=== PATIENT | female | born 1960 | race Caucasian/White ===

== ENCOUNTER 2018-11-23 17:29 | Inpatient (IN) | payer OTHER, MEDICAID, SELFPAY ==
[2018-11-23] VITALS (11 sets, daily range): BP systolic 98–178; BP diastolic 60–95; PULSE 62–80; RESP 14–21; TEMP 35.9–36.7; O2SAT 98–100; BMI 25.6
--- NOTE | 2018-11-23 17:42 | DI.RAD.S_ITS ---
PROCEDURE: XR CHEST 1V INDICATIONS: intubation TECHNIQUE: One view of the chest was acquired. COMPARISON: None. FINDINGS: Surgical changes and devices: Endotracheal tube present with tip terminating approximately 4.2 cm above the gina. Lungs and pleura: Lungs are clear. No pleural effusions or pneumothorax. Mediastinum: Mediastinal contours appear normal. Heart size is normal. Bones and chest wall: No suspicious bony lesions. Degenerative changes of the spine and shoulders. Overlying soft tissues appear unremarkable. IMPRESSION: Endotracheal tube tip 4.2 cm above the gina. No other acute cardiopulmonary findings. Dictated by: Raúl Myrick M.D. on 11/23/2018 at 17:19 Approved by: Raúl Myrick M.D. on 11/23/2018 at 17:21
--- NOTE | 2018-11-23 17:43 | PC.NURSE ---
pt arrived with ems, pt had wellness check by , where she told them she had taken medication and drank alcohol. ems arrived and brought patient in. pt had iv to rt ac and had small amt of charcoal.
--- NOTE | 2018-11-23 17:46 | PC.NURSE ---
pt had agonal breaths on arrival, respiratory at bedside, pt provided etomidate 15mg iv push at 1738, succinylcholine 100mg iv push at 1739. 217ett 7.5, ll 23, 15rr, 450tv, 5 peep, 100% O2, bp 217/136, hr 24, 98% spo2.
--- NOTE | 2018-11-23 17:47 | ED_ITS ---
HPI - Overdose General Chief Complaint: Toxicology Problem Stated Complaint: Suicidial Ideation Time Seen by Provider: 11/23/18 17:42 Source: family and EMS Mode of arrival: EMS Limitations: altered mental status History of Present Illness HPI Narrative: Patient is a 58-year-old female with history of bipolar presen ting with overdose. Daughter called police for possible suicide attempt. Patient states that she took her olanzapine and alcohol. She was ambulatory out of the house and into the ambulance. However upon arrival to ED she quickly became unresponsive. I spoke with daughter who states that she had a psychotic break in October she was not hospitalized at that time. She has not been taking her olanzapine as she is supposed to. Bottles of olanzapine 2.5 mg and 15 mg are brought in but completely empty they were filled on 10/14/2018. It is unknown how many she took. Review of Systems Review of Systems ROS Unobtainable: Unobtainable due to medical condition Patient History Medical History Bipolar 1 disorder (Acute) PTSD (post-traumatic stress disorder) (Acute) Exam Initial Vital Signs Initial Vital Signs: Vital Signs Temperature 97.8 F 11/23/18 17:37 Gen.: Patient responsive minimally only to pain HEENT: No trauma, KATE Neck: Supple no JVD Lungs: Clear bilaterally no wheezes rales or rhonchi Cardiac: Regular rate and rhythm S1-S2 Abdomen: Soft nontender Extremities: No gross bony deformities peripheral pulses intact Neurologic: Responsive minimally to pain unable to protect airway Procedures Intubation Time out performed: Yes sedative: Etomidate Mg Given: 15 paralytic: Succinylcholine Mg Given: 100 Laryngoscope: fiber optic video scope ET Tube Size: 7.5 ET Tube Uncuffed: No Tube Secured Location: lips Tube Placement Confirmation: Visualized tube passing through cords, Equal breath sounds bilaterally, No breath sounds over epigastrium, Confirmation by capnometry and Chest Xray Patient Tolerated Procedure: Well Intubation Complications: none Course Orders Ordered: ED Orders 11/23/18 17:20 Acetaminophen Stat Complete Blood Count AUTO DIFF Stat Comprehensive Metabolic Panel Stat Ethanol (ETOH) Stat Hepatic (Liver) Panel Stat Lipase Stat Salicylate Stat 11/23/18 17:42 XR chest 1V Stat 11/23/18 17:46 EKG-12 Lead Routine 11/23/18 18:07 Urine Drug Screen, Rapid Stat 11/23/18 18:09 Lactate (Lactic Acid) Stat Sodium Chloride (Normal Saline 0.9%) 1,000 mls @ 150 mls/hr IV CONT ORION Last Admin: 11/23/18 18:11 Dose: 150 mls/hr Documented by: BTONER Propofol (Propofol) 1,000 mg in 100 mls @ 0 mls/hr IV TITRATE ORION; Protocol Discontinued Medications Etomidate (Amidate) 15 mg IV NOW ONE Stop: 11/23/18 17:44 Last Admin: 11/23/18 18:11 Dose: 15 mg Documented by: BTONER Propofol (Diprivan) 50 mg IV NOW ONE Stop: 11/23/18 18:43 Last Admin: 11/23/18 18:48 Dose: 50 mg Documented by: BTONER Succinylcholine Chloride (Quelicin) 100 mg IV NOW ONE Stop: 11/23/18 17:46 Last Admin: 11/23/18 18:10 Dose: 100 mg Documented by: BTONER Vital Signs Vital signs: Vital Signs - 8 hr 11/23/18 17:37 11/23/18 17:56 11/23/18 18:24 Temperature 97.8 F 97.8 F Pulse Rate 80 Respiratory Rate 14 Blood Pressure [Left Arm] 178/88 H Pulse Oximetry 100 MDM - Overdose Lab Data Attestation: I reviewed the patient's lab results. Result diagrams: 11/23/18 17:20 11/23/18 17:20 Labs: Lab Results 11/23/18 11/23/18 11/23/18 Range/Units 17:20 17:20 18:07 WBC 9.4 (4.5-11.0) X10^3/uL RBC 5.19 (4.0-5.2) X10^6/uL Hgb 16.1 H (12.0-16.0) g/dL Hct 46.5 H (36-46) % MCV 89.6 (80-100) fL MCH 30.9 (26-34) PG MCHC 34.5 (30-36) % RDW 13.5 (11.6-14.8) % Plt Count 272 (150-400) X10^3/uL Neut % (Auto) 48.0 L (50-75) % Lymph % (Auto) 43.3 H (25-40) % [place] % (Auto) 4.0 (3-14) % Eos % (Auto) 3.7 (2-4) % Baso % (Auto) 1.0 (0-2) % Neut # (Auto) 4500 (1231-7769) /uL Lymph # (Auto) 4100 (0632-1010) /uL [place] # (Auto) 400 (0-900) /uL Eos # (Auto) 300 (0-450) /uL Baso # (Auto) 100 (0-100) /uL Sodium 142 (137-145) mmol/L Potassium 4.0 (3.4-5.1) mmol/L Chloride 109 H (98-107) mmol/L Carbon Dioxide 21 L (22-32) mmol/L BUN 17 (7-17) mg/dL Creatinine 0.80 (0.52-1.04) mg/dL Estimated GFR > 60.0 (>60) mL/min BUN/Creatinine Ratio 21.3 (6-22) Glucose 94 (70-100) mg/dL Lactate (0.7-2.1) mmol/L Calcium 9.4 (8.4-10.2) mg/dL Total Bilirubin 0.3 (0.2-1.3) mg/dL Conjugated Bilirubin 0.0 (0.0-0.3) md/dL Unconjugated Bilirubin 0.2 (0.0-1.1) mg/dL AST 28 (14-36) IU/L ALT 24 (9-52) IU/L Alkaline Phosphatase 89 (38-126) U/L Total Protein 8.1 (6.3-8.2) g/dL Albumin 4.8 (3.5-5.0) g/dL Globulin 3.3 (1.7-4.1) g/dL Albumin/Globulin Ratio 1.5 (1.0-2.8) Lipase 227 (23-300) U/L Salicylates 1.4 (<20) mg/dL U Morph 300 ng/mL cutoff Negative (Negative) Ur Oxycodone Screen Negative (Negative) Urine Methadone Screen Negative (Negative) Acetaminophen < 10 L (10-30) ug/mL Ur Barbiturates Screen Negative (Negative) U Tricyclic Antidepress Negative (Negative) Ur Phencyclidine Scrn Negative (Negative) Ur Amphetamines Screen Negative (Negative) U Methamphetamines Scrn Negative (Negative) Ur MDMA Scrn (Ecstasy) Negative (Negative) U Benzodiazepines Scrn Negative (Negative) Urine Cocaine Screen Negative (Negative) U Marijuana (THC) Screen Negative (Negative) Ethyl Alcohol 47 H ( - 10) mg/dL 11/23/18 Range/Units 18:09 WBC (4.5-11.0) X10^3/uL RBC (4.0-5.2) X10^6/uL Hgb (12.0-16.0) g/dL Hct (36-46) % MCV (80-100) fL MCH (26-34) PG MCHC (30-36) % RDW (11.6-14.8) % Plt Count (150-400) X10^3/uL Neut % (Auto) (50-75) % Lymph % (Auto) (25-40) % [place] % (Auto) (3-14) % Eos % (Auto) (2-4) % Baso % (Auto) (0-2) % Neut # (Auto) (2508-5989) /uL Lymph # (Auto) (0603-3685) /uL [place] # (Auto) (0-900) /uL Eos # (Auto) (0-450) /uL Baso # (Auto) (0-100) /uL Sodium (137-145) mmol/L Potassium (3.4-5.1) mmol/L Chloride (98-107) mmol/L Carbon Dioxide (22-32) mmol/L BUN (7-17) mg/dL Creatinine (0.52-1.04) mg/dL Estimated GFR (>60) mL/min BUN/Creatinine Ratio (6-22) Glucose (70-100) mg/dL Lactate 1.7 (0.7-2.1) mmol/L Calcium (8.4-10.2) mg/dL Total Bilirubin (0.2-1.3) mg/dL Conjugated Bilirubin (0.0-0.3) md/dL Unconjugated Bilirubin (0.0-1.1) mg/dL AST (14-36) IU/L ALT (9-52) IU/L Alkaline Phosphatase (38-126) U/L Total Protein (6.3-8.2) g/dL Albumin (3.5-5.0) g/dL Globulin (1.7-4.1) g/dL Albumin/Globulin Ratio (1.0-2.8) Lipase (23-300) U/L Salicylates (<20) mg/dL U Morph 300 ng/mL cutoff (Negative) Ur Oxycodone Screen (Negative) Urine Methadone Screen (Negative) Acetaminophen (10-30) ug/mL Ur Barbiturates Screen (Negative) U Tricyclic Antidepress (Negative) Ur Phencyclidine Scrn (Negative) Ur Amphetamines Screen (Negative) U Methamphetamines Scrn (Negative) Ur MDMA Scrn (Ecstasy) (Negative) U Benzodiazepines Scrn (Negative) Urine Cocaine Screen (Negative) U Marijuana (THC) Screen (Negative) Ethyl Alcohol ( - 10) mg/dL Imaging Data Chest x-ray: Radiologist's impression: PROCEDURE: XR CHEST 1V INDICATIONS: intubation TECHNIQUE: One view of the chest was acquired. COMPARISON: None. FINDINGS: Surgical changes and devices: Endotracheal tube present with tip terminating approximately 4.2 cm above the gina. Lungs and pleura: Lungs are clear. No pleural effusions or pneumothorax. Mediastinum: Mediastinal contours appear normal. Heart size is normal. Bones and chest wall: No suspicious bony lesions. Degenerative changes of the spine and shoulders. Overlying soft tissues appear unremarkable. IMPRESSION: Endotracheal tube tip 4.2 cm above the gina. No other acute cardiopulmonary findings. Dictated by: Raúl Myrick M.D. on 11/23/2018 at 17:19 ECG Data Attestation: I personally reviewed and interpreted this ECG as follows: Prior ECG tracings: not available for review Interpretation: Sinus rhythm rate 90 p.r. interval 146 QRS 90 QTC 415 no R-waves in AVR no ST elevations or T-wave inversions MDM Narrative Medical decision making narrative: It is unknown how many tablets of Zyprexa patient actually took. She has been hoarding her medication bottles that were brought in were filled on October 14. She has small amount of alcohol on board 47. Patient was intubated immediately for airway protection. She was minimally responsive to pain and unable to protect her airway. Her daughter has been updated as of on her condition. Daughter: Willian Unger [phone] Patient is placed on propofol drip. Poison Control has been contacted by myself and by nursing. His they state some patient has become hypotensive however she actually is hypertensive with a systolic above 170. His she does seem to be fighting the vent a little. They also state that they can have some dystonic reactions, worse case scenario may require intralipids. However conservative treatment and watchful waiting at this time. Patient has no focal deficits was previously normal history of overdose. At this time I do not see a need for head CT. Dr. quiles updated on patient's symptoms test results in the ED to see and ev aluate patient Discharge Plan Departure Patient Disposition: Admitted As Inpatient Clinical Impression: Overdose Qualifiers: Encounter type: initial encounter Injury intent: undetermined intent Qualified Code(s): T50.904A - Poisoning by unspecified drugs, medicaments and biological substances, undetermined, initial encounter Respiratory failure Qualifiers: Chronicity: acute Respiratory failure complication: unspecified whether with hypoxia or hypercapnia Qualified Code(s): J96.00 - Acute respiratory failure, unspecified whether with hypoxia or hypercapnia Discharge Date/Time: 11/23/18 18:55 Admit Date/Time: 11/23/18 18:46 Admit Provider: Aren Quiles
[2018-11-23 17:56] LABS: Add Manual Diff / Slide Review NO; Basophils Absolute Auto 100 /uL (0-100); Eosinophils Absolute Auto 300 /uL (0-450); Eosinophils Percent Auto 3.7 % (2-4); Hematocrit 46.5 % (36-46); Hemoglobin 16.1 g/dL (12.0-16.0); Lymphocytes Absolute Auto 4100 /uL (1100-4500); Lymphocytes Percent Auto 43.3 % (25-40); Mean Corpuscular HGB Conc 34.5 % (30-36); Mean Corpuscular Hemoglobin 30.9 PG (26-34); Mean Corpuscular Volume 89.6 fL (80-100); Monocytes Absolute Auto 400 /uL (0-900); Neutrophils Absolute Auto 4500 /uL (1500-7000); Platelet Count 272 X10^3/uL (150-400); Red Blood Cell Count 5.19 X10^6/uL (4.0-5.2); Red Cell Distribution Width 13.5 % (11.6-14.8); White Blood Cell Count 9.4 X10^3/uL (4.5-11.0)
--- NOTE | 2018-11-23 18:06 | PC.NURSE ---
johann ramírez rn verified placement by auscultation.
[2018-11-23] MEDS: PROPOFOL 1,000 MG/100 ML VIAL 4.3 MG IV (18:09)
[2018-11-23 18:10] LABS: Acetaminophen < 10 ug/mL (10-30); Alanine Aminotransferase 24 IU/L (9-52); Albumin 4.8 g/dL (3.5-5.0); Albumin Globulin Ratio 1.5 (1.0-2.8); Alkaline Phosphatase 89 U/L (38-126); Aspartate Aminotransferase 28 IU/L (14-36); BUN Creatinine Ratio 21.3 (6-22); Bilirubin Total 0.3 mg/dL (0.2-1.3); Bilirubin Unconjugated 0.2 mg/dL (0.0-1.1); Blood Urea Nitrogen 17 mg/dL (7-17); Calcium 9.4 mg/dL (8.4-10.2); Carbon Dioxide 21 mmol/L (22-32); Chloride 109 mmol/L (98-107); Estimated Glomerular Filt Rate > 60.0 mL/min (>60); Ethanol (ETOH) 47 mg/dL; Globulin 3.3 g/dL (1.7-4.1); Glucose 94 mg/dL (70-100); HEMOLYSIS < 15 (0-50); Lipase 227 U/L (23-300); Salicylate 1.4 mg/dL (<20); Sodium 142 mmol/L (137-145); Total Protein 8.1 g/dL (6.3-8.2)
[2018-11-23] MEDS: SUCCINYLCHOLINE 200 MG/10 ML VIAL 100 MG IV (18:10)
[2018-11-23] MEDS: SODIUM CHLORIDE 0.9% 1,000 ML 150 ML IV (18:11)
[2018-11-23] MEDS: ETOMIDATE 2 MG/ML 10 ML VIAL 15 MG IV (18:11)
[2018-11-23 18:19] LABS: UR Morphine/Opiate cutoff 300 Negative (Negative); Ur Creatinine Normal (Normal); Ur Specific Gravity Normal (Normal); Urine Amphetamines Negative (Negative); Urine Barbiturates Negative (Negative); Urine Benzodiazepines Negative (Negative); Urine Cocaine Negative (Negative); Urine MDMA Negative (Negative); Urine Methadone Negative (Negative); Urine Methamphetamines Negative (Negative); Urine Oxycodone Negative (Negative); Urine Phencyclidine Negative (Negative); Urine Tetrahydrocannabinol Negative (Negative); Urine Tricyclic Antidepressant Negative (Negative); Urine pH Normal (Normal)
[2018-11-23 18:33] LABS: Lactate (Lactic Acid) 1.7 mmol/L (0.7-2.1)
[2018-11-23] MEDS: PROPOFOL 200 MG/20 ML VIAL 50 MG IV (18:48)
[2018-11-23] MEDS: MIDAZOLAM 2 MG/2 ML VIAL IV (20:16)
[2018-11-23 20:23] LABS: HCO3 ABG 20 mmol/L (22-26); Oxygen Saturation ABG 99 % (95-100); PCO2 ABG 33.2 mmHg (35-45); PO2 ABG 131 mmHg (80-100); TCO2 ABG 21 mmol/L (21-31)
--- NOTE | 2018-11-23 20:25 | P.HP_ITS ---
History of Present Illness History of Present Illness Date Patient Seen: 11/23/18 Time Patient Seen: 19:45 Chief complaint: Suicidial Ideation Narrative: 58 y.o. female with a history of bipolar disorder and PTSD arrived to the ED after daughter contacted police after a suicide attempt. History primarily from the ED notes as patient is sedated and intubated. No records are available and it appears as though she has not been seen here previously. Per the ED provider's note, she admitted to her daughter she had taken olanzapine along with alcohol. Per the daughter, she was not taking her olanzapine and bottles of olanzapine 2.5 mg and 15 mg were brought in empty and noted to be filled on October 14, 2018. Per the ED note, she had a psychotic break in October, but was discharged at that time presumably from another facility or clinic. The patient was ambulatory at her home and in the ambulance, but was non- responsive upon arrival to the ED. She was not hypoxic, but was intubated to protect her airway. She had a mildly elevated blood alcohol level and poison control was consulted by the ED. Patient History Medical History Bipolar 1 disorder (Acute) PTSD (post-traumatic stress disorder) (Acute) Family & Social History Tobacco & Substance use: alcohol intake frequency 0-2 drinks per day Meds Home Medications and Allergies Home Medications Medication Instructions Recorded Confirmed Type olanzapine 2.5 mg PO DAILY PRN 11/23/18 11/23/18 History olanzapine 15 mg PO BEDTIME 11/23/18 11/23/18 History vitamin E 400 unit PO DAILY 11/23/18 11/23/18 History Review of Systems Review of Systems ROS Unobtainable: due to endotracheal tube Exam Vital Signs (past 8 hours): - 11/23/18 17:37 11/23/18 17:56 11/23/18 18:24 Temperature 97.8 F 97.8 F Pulse Rate 80 Respiratory Rate 14 Blood Pressure Blood Pressure [Left Arm] 178/88 H Pulse Oximetry 100 11/23/18 19:05 Temperature 96.7 F L Pulse Rate 76 Respiratory Rate 18 Blood Pressure 164/95 H Blood Pressure [Left Arm] Pulse Oximetry 100 Oxygen Delivery Method Mechanical Ventilation Narrative Exam Narrative: Gen: Intubated and sedated, well-developed 58 y.o. female, does withdraw to pain HEENT: normocephalic, atraumatic, conjunctiva clear, sclera non-icteric, oral mucosa pink and moist Neck: supple, full ROM Resp: course lung sounds, ventilated CV: RRR, no murmur or rubs Abd: soft, non-tender, normoactive BTs Skin: no lesions or rashes, dry and intact Neuro: Sedated, GCS: 6 Extremities: moves upper extremities in response to pain, restrained to avoid pulling out lines Psyche: Unable to assess. Objective Labs Result Diagrams: 11/23/18 17:20 11/23/18 17:20 Labs: Laboratory Results - last 24 hr 11/23/18 11/23/18 11/23/18 17:20 17:20 18:07 WBC 9.4 RBC 5.19 Hgb 16.1 H Hct 46.5 H MCV 89.6 MCH 30.9 MCHC 34.5 RDW 13.5 Plt Count 272 Neut % (Auto) 48.0 L Lymph % (Auto) 43.3 H [place] % (Auto) 4.0 Eos % (Auto) 3.7 Baso % (Auto) 1.0 Neut # (Auto) 4500 Lymph # (Auto) 4100 [place] # (Auto) 400 Eos # (Auto) 300 Baso # (Auto) 100 ABG pH ABG pCO2 ABG pO2 ABG HCO3 ABG Total CO2 ABG O2 Saturation ABG Base Excess FiO2 Sodium 142 Potassium 4.0 Chloride 109 H Carbon Dioxide 21 L BUN 17 Creatinine 0.80 Estimated GFR > 60.0 BUN/Creatinine Ratio 21.3 Glucose 94 Lactate Calcium 9.4 Total Bilirubin 0.3 Conjugated Bilirubin 0.0 Unconjugated Bilirubin 0.2 AST 28 ALT 24 Alkaline Phosphatase 89 Total Protein 8.1 Albumin 4.8 Globulin 3.3 Albumin/Globulin Ratio 1.5 Lipase 227 Salicylates 1.4 U Morph 300 ng/mL cutoff Negative Ur Oxycodone Screen Negative Urine Methadone Screen Negative Acetaminophen < 10 L Ur Barbiturates Screen Negative U Tricyclic Antidepress Negative Ur Phencyclidine Scrn Negative Ur Amphetamines Screen Negative U Methamphetamines Scrn Negative Ur MDMA Scrn (Ecstasy) Negative U Benzodiazepines Scrn Negative Urine Cocaine Screen Negative U Marijuana (THC) Screen Negative Ethyl Alcohol 47 H 11/23/18 11/23/18 18:09 20:11 WBC RBC Hgb Hct MCV MCH MCHC RDW Plt Count Neut % (Auto) Lymph % (Auto) [place] % (Auto) Eos % (Auto) Baso % (Auto) Neut # (Auto) Lymph # (Auto) [place] # (Auto) Eos # (Auto) Baso # (Auto) ABG pH 7.40 ABG pCO2 33.2 L ABG pO2 131 H ABG HCO3 20 L ABG Total CO2 21 ABG O2 Saturation 99 ABG Base Excess -4.0 L FiO2 0.30 Sodium Potassium Chloride Carbon Dioxide BUN Creatinine Estimated GFR BUN/Creatinine Ratio Glucose Lactate 1.7 Calcium Total Bilirubin Conjugated Bilirubin Unconjugated Bilirubin AST ALT Alkaline Phosphatase Total Protein Albumin Globulin Albumin/Globulin Ratio Lipase Salicylates U Morph 300 ng/mL cutoff Ur Oxycodone Screen Urine Methadone Screen Acetaminophen Ur Barbiturates Screen U Tricyclic Antidepress Ur Phencyclidine Scrn Ur Amphetamines Screen U Methamphetamines Scrn Ur MDMA Scrn (Ecstasy) U Benzodiazepines Scrn Urine Cocaine Screen U Marijuana (THC) Screen Ethyl Alcohol Assessment & Plan Assessment & Plan narrative: Hiral Jaimes will be admitted to the ICU and remain intubated overnight. 1. Drug overdose, probable suicide attempt * Vent settings per Respiratory * Daily ABGs * Propafal drip per protocol * Will need to contact mental health crisis team when she is alert and oriented enough to participate in interview. * Obtain outside records. Bottles of olazapine were written by Oksana Negrete, stock broker supervisor at [facility] [phone] Patient is admitted as an inpatient to the ICU as his stay is anticipated to exceed 2 midnights. Currently, she is intubated to protect her airway and will require close monitoring until she is able to be weaned off per Respiratory. FEN: D5 NS, NPO, CBC and chemistries in the am. VTE Prophylaxis: Enoxaparin 40 mg subq Disposition: She will need to be cleared by the [facility] for suicidal ideation Code status: Full code Admission time: 75 minutes Meds reconciled: No, records are unavailable. Time Spent With Patient Time with patient: Greater than 35 minutes Scores GCS [place] coma scale eye opening: To pressure [place] coma scale verbal response: None Juan A coma scale motor response: Abnormal flexion Juan A coma scale total score: 6 Quality VTE Deep Vein Thrombosis/Pulmonary Embolism Present on Admission: No
[2018-11-23] MEDS: DEXTROSE 5%-0.9% NS 1,000 ML 100 ML IV (21:00)
[2018-11-23] MEDS: ENOXAPARIN 40 MG/0.4 ML SYRINGE SUBCUT (21:00)
--- NOTE | 2018-11-23 22:20 | PC.NURSE ---
190 - Pt to room from ER. Transfer to bed via sliderboard. RT managing airway and vent. Pt moving all extremities independently. Reaching for tube. Oriented to place and situation. Pt arching back. Propofol titrated up to 15mcg/kg/min. 1999 - SMASH PIECER, Liss Hess at bedside. RT attempting to obtain blood gas. Pt resistive to care and reaching for tubes and wires. Restraint order obtained. Versed 2mg given per order for additional sedation in order to obtain ABG. Propofol gtt titrated up to 20mcg/kg/min. Pt resistive but does not nod head or rn telephone triage in response to request. Vent settings titrated r/t ABG results.
[2018-11-24] VITALS (24 sets, daily range): BP systolic 90–153; BP diastolic 58–82; PULSE 60–93; RESP 18–22; TEMP 37.3–37.9; O2SAT 92–98; BMI 25.6
[2018-11-24] MEDS: PROPOFOL 1,000 MG/100 ML VIAL 6.39 MG IV (03:48)
[2018-11-24 05:22] LABS: Add Manual Diff / Slide Review NO; Basophils Absolute Auto 100 /uL (0-100); Basophils Percent Auto 0.5 % (0-2); Eosinophils Absolute Auto 300 /uL (0-450); Eosinophils Percent Auto 2.7 % (2-4); Hematocrit 37.7 % (36-46); Hemoglobin 13.2 g/dL (12.0-16.0); Lymphocytes Absolute Auto 1600 /uL (1100-4500); Lymphocytes Percent Auto 15.4 % (25-40); Mean Corpuscular Volume 88.5 fL (80-100); Monocytes Absolute Auto 500 /uL (0-900); Monocytes Percent Auto 4.4 % (3-14); Neutrophils Absolute Auto 8100 /uL (1500-7000); Platelet Count 214 X10^3/uL (150-400); Red Blood Cell Count 4.26 X10^6/uL (4.0-5.2); Red Cell Distribution Width 13.7 % (11.6-14.8); White Blood Cell Count 10.6 X10^3/uL (4.5-11.0)
[2018-11-24 05:34] LABS: Alanine Aminotransferase 17 IU/L (9-52); Albumin 3.4 g/dL (3.5-5.0); Albumin Globulin Ratio 1.3 (1.0-2.8); Alkaline Phosphatase 59 U/L (38-126); Aspartate Aminotransferase 20 IU/L (14-36); Bilirubin Total 0.4 mg/dL (0.2-1.3); Blood Urea Nitrogen 14 mg/dL (7-17); Calcium 8.2 mg/dL (8.4-10.2); Carbon Dioxide 21 mmol/L (22-32); Chloride 114 mmol/L (98-107); Estimated Glomerular Filt Rate > 60.0 mL/min (>60); Globulin 2.7 g/dL (1.7-4.1); Glucose 129 mg/dL (70-100); HEMOLYSIS < 15 (0-50); Potassium 3.6 mmol/L (3.4-5.1); Sodium 141 mmol/L (137-145); Total Protein 6.1 g/dL (6.3-8.2)
[2018-11-24] MEDS: DEXTROSE 5%-0.9% NS 1,000 ML 100 ML IV ×2 (07:21→17:00)
--- NOTE | 2018-11-24 08:05 | PC.NURSE ---
Addendum entered by Vero Garcia R.N. 11/24/18 14:32: Pt able to wean off propofol and extubated @ 1155am. Restraints removed. Pt is on 2L NC currently, Spo2 97%. Able to make purposeful movement and GRAB JACK MAN to all 4 ext. brisk. Denies pain. NG tube also removed R nare. NPO as Pt remains sedated. Oral care provided. Original Note: AM shift Assumed care of Pt, vented, Fi02 25%, Propofol gtt @ 15mcg/kg/min. RASS -3, Pt responds to verbal communication, no sustained eye contact. Not able to follow commands yet. Apple patent, VSS, NPO to LIS suction with light pink/and bile collecting. Dr Quiles into see Pt. Discussed POC and potential for extubation this AM. Phone number provided for Daughter. Restraints in place. CMS+ GRAB JACK MAN <2.
[2018-11-24] MEDS: PANTOPRAZOLE 40 MG VIAL IV (09:14)
[2018-11-24] MEDS: ENOXAPARIN 40 MG/0.4 ML SYRINGE SUBCUT (09:14)
--- NOTE | 2018-11-24 12:06 | RT ---
Patient extubated with JOAQUIN Pham and MD Quiles at bedside. Patient follows directions and answering questions appropriately prior to extubation. Patient extubated without incident and placed on 2 liter nasal cannula. Sat 97% and HR 89. No respiratory distress noted.
--- NOTE | 2018-11-24 12:29 | PM.PN.1 ---
Subjective Subjective Date Patient Seen: 11/24/18 Time Patient Seen: 14:55 Interval history: She is seen today to follow up her suicide attempt/olanzapine overdose, ventilator management and depression/schizophrenia. Once the ICU staff were able to concentrate fully on her case late this morning we carefully turned off the propofol drip and extubated her with good results. She is still sleepy but able to communicate/engage/breathe on her own without signs of airway compromise or risk. I was also able to speak with her daughter with notes taken and printed below. She will be seen by social media strategist and her daughter will be coming to visit tomorrow morning. Exam Vital Signs (past 8 hours): - 11/24/18 05:06 11/24/18 06:07 11/24/18 06:17 Temperature 99.4 F Pulse Rate 64 71 Respiratory Rate 18 18 Blood Pressure 90/59 L 118/70 Pulse Oximetry 94 92 11/24/18 07:04 11/24/18 08:00 11/24/18 09:00 Temperature 99.3 F Pulse Rate 69 74 72 Respiratory Rate 18 18 18 Blood Pressure 103/62 112/58 L 107/63 Pulse Oximetry 94 92 94 11/24/18 10:00 11/24/18 11:00 11/24/18 12:00 Temperature 99.9 F H Pulse Rate 85 78 93 H Respiratory Rate 22 19 21 Blood Pressure 120/78 136/71 141/68 H Pulse Oximetry 95 96 94 Oxygen Delivery Method Mechanical Ventilation Oxygen Flow Rate 2 Narrative Exam Narrative: She is alert alert when the propofol is turned off and the NG tube/ET tubes are removed. She remains somewhat sleepy with her eyes closed. She squeezes my hand on command and is able to answer yes no questions. Heart is regular rate and rhythm no murmur. Lungs are clear to auscultation bilaterally. There are no cut blake or scars visible today. Objective Labs Result Diagrams: 11/24/18 05:03 11/24/18 05:03 Labs: Laboratory Results - last 24 hr 11/23/18 11/23/18 11/23/18 17:20 17:20 18:07 WBC 9.4 RBC 5.19 Hgb 16.1 H Hct 46.5 H MCV 89.6 MCH 30.9 MCHC 34.5 RDW 13.5 Plt Count 272 Neut % (Auto) 48.0 L Lymph % (Auto) 43.3 H Martin % (Auto) 4.0 Eos % (Auto) 3.7 Baso % (Auto) 1.0 Neut # (Auto) 4500 Lymph # (Auto) 4100 Martin # (Auto) 400 Eos # (Auto) 300 Baso # (Auto) 100 ABG pH ABG pCO2 ABG pO2 ABG HCO3 ABG Total CO2 ABG O2 Saturation ABG Base Excess FiO2 Sodium 142 Potassium 4.0 Chloride 109 H Carbon Dioxide 21 L BUN 17 Creatinine 0.80 Estimated GFR > 60.0 BUN/Creatinine Ratio 21.3 Glucose 94 Lactate Calcium 9.4 Total Bilirubin 0.3 Conjugated Bilirubin 0.0 Unconjugated Bilirubin 0.2 AST 28 ALT 24 Alkaline Phosphatase 89 Total Protein 8.1 Albumin 4.8 Globulin 3.3 Albumin/Globulin Ratio 1.5 Lipase 227 Nasal Screen MRSA (PCR) Salicylates 1.4 U Morph 300 ng/mL cutoff Negative Ur Oxycodone Screen Negative Urine Methadone Screen Negative Acetaminophen < 10 L Ur Barbiturates Screen Negative U Tricyclic Antidepress Negative Ur Phencyclidine Scrn Negative Ur Amphetamines Screen Negative U Methamphetamines Scrn Negative Ur MDMA Scrn (Ecstasy) Negative U Benzodiazepines Scrn Negative Urine Cocaine Screen Negative U Marijuana (THC) Screen Negative Ethyl Alcohol 47 H 11/23/18 11/23/18 11/23/18 18:09 19:07 20:11 WBC RBC Hgb Hct MCV MCH MCHC RDW Plt Count Neut % (Auto) Lymph % (Auto) Martin % (Auto) Eos % (Auto) Baso % (Auto) Neut # (Auto) Lymph # (Auto) Martin # (Auto) Eos # (Auto) Baso # (Auto) ABG pH 7.40 ABG pCO2 33.2 L ABG pO2 131 H ABG HCO3 20 L ABG Total CO2 21 ABG O2 Saturation 99 ABG Base Excess -4.0 L FiO2 0.30 Sodium Potassium Chloride Carbon Dioxide BUN Creatinine Estimated GFR BUN/Creatinine Ratio Glucose Lactate 1.7 Calcium Total Bilirubin Conjugated Bilirubin Unconjugated Bilirubin AST ALT Alkaline Phosphatase Total Protein Albumin Globulin Albumin/Globulin Ratio Lipase Nasal Screen MRSA (PCR) Negative for mrsa Salicylates U Morph 300 ng/mL cutoff Ur Oxycodone Screen Urine Methadone Screen Acetaminophen Ur Barbiturates Screen U Tricyclic Antidepress Ur Phencyclidine Scrn Ur Amphetamines Screen U Methamphetamines Scrn Ur MDMA Scrn (Ecstasy) U Benzodiazepines Scrn Urine Cocaine Screen U Marijuana (THC) Screen Ethyl Alcohol 11/24/18 11/24/18 05:03 05:03 WBC 10.6 RBC 4.26 Hgb 13.2 Hct 37.7 MCV 88.5 MCH 31.0 MCHC 35.0 RDW 13.7 Plt Count 214 Neut % (Auto) 77.0 H D Lymph % (Auto) 15.4 L D Martin % (Auto) 4.4 Eos % (Auto) 2.7 Baso % (Auto) 0.5 Neut # (Auto) 8100 H Lymph # (Auto) 1600 Martin # (Auto) 500 Eos # (Auto) 300 Baso # (Auto) 100 ABG pH ABG pCO2 ABG pO2 ABG HCO3 ABG Total CO2 ABG O2 Saturation ABG Base Excess FiO2 Sodium 141 Potassium 3.6 Chloride 114 H Carbon Dioxide 21 L BUN 14 Creatinine 0.50 L Estimated GFR > 60.0 BUN/Creatinine Ratio 28.0 H Glucose 129 H Lactate Calcium 8.2 L Total Bilirubin 0.4 Conjugated Bilirubin Unconjugated Bilirubin AST 20 ALT 17 Alkaline Phosphatase 59 Total Protein 6.1 L Albumin 3.4 L Globulin 2.7 Albumin/Globulin Ratio 1.3 Lipase Nasal Screen MRSA (PCR) Salicylates U Morph 300 ng/mL cutoff Ur Oxycodone Screen Urine Methadone Screen Acetaminophen Ur Barbiturates Screen U Tricyclic Antidepress Ur Phencyclidine Scrn Ur Amphetamines Screen U Methamphetamines Scrn Ur MDMA Scrn (Ecstasy) U Benzodiazepines Scrn Urine Cocaine Screen U Marijuana (THC) Screen Ethyl Alcohol Assessment & Plan Assessment & Plan narrative: 1. Drug overdose, probable suicide attempt, unknown quantity of Olanzapine - she was intubated for airway protection as she became completely obtunded at risk of aspirating charcoal immediately on admission to the emergency department yesterday. - Extubated successfully this afternoon. She remains sleepy but follows commands and engages. Her airway is no longer in danger. - Social service with speak with her and with her daughter. Once she is medically stable (likely tomorrow) the [facility] will be contacted for a formal interview and possible psychiatric admission. - Obtain outside records. Bottles of olazapine were written by Oksana Negrete, sledger at [facility] [phone] - NG tube removed. Will continue IV fluid until able to eat. At this point until she is fully alert she is still NPO. VTE Prophylaxis: Enoxaparin 40 mg subq Disposition: [facility] need [facility] 2. Schizophrenia -I spoke with her daughter, Sharon this afternoon. She will be coming up from [place] tomorrow morning to be of assistance. She tells me that she has been treated for the PTSD/schizophrenia for the last 2 years, with significant periods of time when she refuses take her medicines. Her last inpatient psychiatric care was at [facility]. During her last psychotic episode in October she was treated as an outpatient, her daughter brought her to live with her. She told her then that she had not taken any medicine for about 10 months. She was started on Abilify which she refused to take after 2 weeks. She has stopped all her medicines since then. Her daughter has had to ?cut her off financially? and so she has been living in a hotel. She became embroiled in a legal issue recently when she stole a cat from her roommate, becoming delusional that the cat was able to foresee the end of the world, etc. Her final pre suicidal attempt crisis appears to be that her 14-year-old son (who lives with his father) told her early this week that he had did not want to see her again because he did not like the way she acted when she was off her medicines. She then made statements on Facebook yesterday that led her daughter to be concerned. This led to the admission ambulance call and the admission. Quality VTE Deep Vein Thrombosis/Pulmonary Embolism Present on Admission: No
--- NOTE | 2018-11-24 15:21 | PC.NURSE ---
Pt has repeatedly told me she wants to take out her IV. I explained why she should not do that and she seemed agreeable.
--- NOTE | 2018-11-24 15:53 | PC.NURSE ---
Pt's bracelet was removed and put with her personal belongings.
--- NOTE | 2018-11-24 16:18 | CM.DANOTE ---
Addendum entered by Lilliam Samuel 11/25/18 12:48: Patient enrolled in [facility]. Counselor is Madeline Sotelo # [phone]. Addendum entered by Lilliam Samuel 11/25/18 09:17: Left vm with [facility] on [facility] at [phone] requesting call back re: mutual client. KJS Original Note: DCP/Assessment: Reviewed chart. Patient is a 58yr old female admitted to [facility] after intentional overdose of prescription medication and alcohol. PCP not listed. Primary payor is 1)Medicaid? Discussed case with Dr. Quiles in AM rounds. Patient admitted through the ED on 11-23-18. Patient intubated after intentional suicide attempt. Patient extubated today around 1:00pm. Police called by patient's daughter after patient called her to tell her she overdosed on prescription drugs and alcohol in hopes to end her life. Placed call to daughter/Sharon she confirms the above information. Daughter coming to [facility] tomorrow to meet with EMERGENCY ROOM CLINICIAN and hopefully MD about next steps. Daughter reports patient with long history of Bipolar I and PTSD. Per daughter, patient actively enrolled in [facility] in [place]. Patient has both psychiatrist and counselor at [facility]. EMERGENCY ROOM CLINICIAN unable to reach today but will attempt to call and get updated information pertaining to patient's mental health history in AM. Daughter reports no recent suicide attempts however, daughter report that patient often talks about it. (1) inpatient psychiatric visit approximately 3yrs ago at [facility]. Unclear if that was for SI/HI? 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 Patient's family owns property and let's her stay there for short periods. Daughter indicates that recently she has had falling out with patient because she is no longer providing patient with money. Daughter reports that she has mental health issues of her own and has chosen to set some boundaries with patient. Daughter reports that patient has had several psychotic episodes related to not taking her medications properly. Attempted to meet with patient however, she is very drowsy after extubation today. Patient has 02/05 for safety. EMERGENCY ROOM CLINICIAN will plan to call meet with daughter/family tomorrow. Encouraged daughter to do affidavit for non-voluntary psychiatric placement if needed. Daughter does not think patient will be voluntary for medication stabilization. ICU staff aware of above. P: Pending. May need inpatient psychiatric placement. Too soon to tell. EMERGENCY ROOM CLINICIAN following closely. PINKY Carrillo
--- NOTE | 2018-11-24 17:57 | PC.NURSE ---
Addendum entered by Gissel Alcazar R.N. 11/25/18 02:40: 0230 - Pt sitting up on the edge of the bed. Able to take sips of water without difficulty. Hospitalist notified. Diet advanced as tolerated. Snack provided. Addendum entered by Gissel Alcazar R.N. 11/25/18 00:50: 0015 - Pt awake but drowsy. Reports being at [place]. Reoriented to place and time. Pt impulsive with movements, able to follow requests. Set up at edge of bed for sips of water. No swallow difficulties. Positioned self for comfort. Bed alarm on. Addendum entered by Gissel Alcazar R.N. 11/24/18 22:19: 2200 - Pt resting quietly in bed. Repositions self independently. RR even and relaxed. Comfort measures provided. warm blanket and lighting adjusted. Bed alarm on. Addendum entered by Gissel Alcazar R.N. 11/24/18 18:20: 1815 - Pt able to sit up. IS education provided. Needs reinforcement. Able to take sips of water without difficulty. Assist with face washing. Small clot remains in right nare r/t NGT. Bed alarm on. Monitor. Original Note: 1630 - Pt drowsy, with intermittent periods of restlessness and delayed verbal response. However, she does answer questions appropriately. When asked where she lives pt states that she is homeless right now. Reports an allergy to Kiwi with oral swelling. Oriented to situation and treatment plan. Educated to safety and call light use. Call light in reach. 1:1 sitter at this time. Monitor.
[2018-11-25 00:05] VITALS: BP 137/75; PULSE 76; RESP 21; TEMP 36.9; O2SAT 95
[2018-11-25] MEDS: DEXTROSE 5%-0.9% NS 1,000 ML 100 ML IV (02:35)
[2018-11-25 04:34] VITALS: BP 135/75; PULSE 73; RESP 18; TEMP 36.7; O2SAT 95
[2018-11-25 04:57] LABS: Add Manual Diff / Slide Review NO; Basophils Absolute Auto 100 /uL (0-100); Basophils Percent Auto 1.1 % (0-2); Eosinophils Absolute Auto 300 /uL (0-450); Eosinophils Percent Auto 3.7 % (2-4); Hematocrit 34.7 % (36-46); Hemoglobin 12.1 g/dL (12.0-16.0); Lymphocytes Absolute Auto 2700 /uL (1100-4500); Lymphocytes Percent Auto 28.7 % (25-40); Mean Corpuscular HGB Conc 34.8 % (30-36); Monocytes Absolute Auto 500 /uL (0-900); Monocytes Percent Auto 5.9 % (3-14); Neutrophils Absolute Auto 5600 /uL (1500-7000); Neutrophils Percent Auto 60.6 % (50-75); Platelet Count 193 X10^3/uL (150-400); Red Cell Distribution Width 13.5 % (11.6-14.8); White Blood Cell Count 9.3 X10^3/uL (4.5-11.0)
[2018-11-25 05:07] LABS: Alanine Aminotransferase 16 IU/L (9-52); Albumin 3.1 g/dL (3.5-5.0); Albumin Globulin Ratio 1.2 (1.0-2.8); Alkaline Phosphatase 50 U/L (38-126); Aspartate Aminotransferase 16 IU/L (14-36); Bilirubin Total 0.6 mg/dL (0.2-1.3); Blood Urea Nitrogen 10 mg/dL (7-17); Calcium 8.4 mg/dL (8.4-10.2); Carbon Dioxide 22 mmol/L (22-32); Chloride 117 mmol/L (98-107); Estimated Glomerular Filt Rate > 60.0 mL/min (>60); Globulin 2.6 g/dL (1.7-4.1); Glucose 83 mg/dL (70-100); HEMOLYSIS < 15 (0-50); Potassium 3.5 mmol/L (3.4-5.1); Sodium 143 mmol/L (137-145); Total Protein 5.7 g/dL (6.3-8.2)
[2018-11-25 08:19] VITALS: PULSE 81; O2SAT 96
[2018-11-25 08:27] VITALS: BP 137/78; PULSE 94; TEMP 37.6; O2SAT 96
[2018-11-25] MEDS: PANTOPRAZOLE 40 MG VIAL IV (09:43)
[2018-11-25] MEDS: ENOXAPARIN 40 MG/0.4 ML SYRINGE SUBCUT (09:44)
--- NOTE | 2018-11-25 10:21 | PC.NURSE ---
Addendum entered by Shantell Ji R.N. 11/25/18 14:45: Addendum entered by Shantell Ji R.N. 11/25/18 12:40: group meeting with pt, daughter and sig other, and HOUSING COURT JUDGE- plan to go voluntary placement - boiler fitter looking for bed- Original Note: pt deemed medically clear- ivf discontinued and saline locked, one periph iv removed and trujillo removed- she has voided since. Tolerating general diet without difficulties- plan for family meeting at 11am- daughter here and left room due to mothers request, daughter in tears and speaking with wireless operator at present
[2018-11-25 12:35] VITALS: PULSE 79; RESP 16; O2SAT 97
--- NOTE | 2018-11-25 14:05 | DIET.PN ---
Dietary Note Assessment: Ms. Jaimes is a 58 yof with medical hx of bipolar and PTSD. She was admitted 11/23 for suicidal ideation and placed on a ventilator. She was extubated 11/24 and placed on a general diet to which she seems to be tolerating well. HT: 162.56cm WT: 67.2kg BMI: 25.4 Labs: Cr: 0.50 Alb: 3.1 pCO2: 33.2 pO2: 131 MNA: n/a Eddie: 15 Nutrition Diagnosis: No nutrition DX at this time. Interventions: No nutrition intervention at this time. Appetite good. PO's 100% Diet Order: General Diet EER: Kcal: 1675 @ 25cal/kg Pro: 87 g @ 1.3g/kg Monitoring/Evaluations: PO's, weight, need for ONS
[2018-11-25 15:14] VITALS: BP 151/79; PULSE 69; RESP 18; TEMP 36.4; O2SAT 99
--- NOTE | 2018-11-25 16:10 | PC.NURSE ---
Addendum entered by Gissel Alcazar R.N. 11/25/18 18:04: 1804 - Pt discharged via EMS, [facility] to [facility]. Pt calm and cooperative with discharge. IV and tele removed prior to departure. Original Note: 1600 - Pt agreeable for voluntary admission to [facility]. Accepting Dr. Hayes FERREIRA. Pt and family notified of pending transfer. Report called to Misty at [facility]. BLS transport ETA 1800. Coordinator Mary maria.
--- NOTE | 2018-11-25 16:32 | P.DS_ITS ---
History of Present Illness History of Present Illness Date Patient Seen: 11/25/18 Time Patient Seen: 09:00 Chief complaint: Suicidial Ideation Narrative: As per MICHAEL Barba: 58 y.o. female with a history of bipolar disorder and PTSD arrived to the ED after daughter contacted police after a suicide attempt. History primarily from the ED notes as patient is sedated and intubated. No records are available and it appears as though she has not been seen here previously. Per the ED provider's note, she admitted to her daughter she had taken olanzapine along with alcohol. Per the daughter, she was not taking her olanzapine and bottles of olanzapine 2.5 mg and 15 mg were brought in empty and noted to be filled on October 14, 2018. Per the ED note, she had a psychotic break in October, but was discharged at that time presumably from another facility or clinic. The patient was ambulatory at her home and in the ambulance, but was non- responsive upon arrival to the ED. She was not hypoxic, but was intubated to protect her airway. She had a mildly elevated blood alcohol level and poison control was consulted by the ED. Discharge Providers Provider Date of admission: 11/23/18 18:46 Discharge Date: 11/25/18 Consults: 11/23/18 19:37 Consult to Dietitian, Adult Routine Comment: Reason For Exam: Patient on Ventilator and NPO Discharge provider: Andrés Chandler DO Summary Hospital Course Discharge Diagnosis: 1. Drug overdose, acute, present on admission. 2. Bipolar I disorder, acute on chronic, present on admission 3. PTSD, chronic, present on admission. Hospital Course: 58 y.o. female with a history of bipolar disorder and PTSD arrived to the ED after daughter contacted police after a suicide attempt. She was at home and decided to take a bottle of olanzapine, which after psych she said was stupid.The patient was intubated in the emergency room for airway protection and admitted to the ICU for monitoring. She was extubated the following day, but she was still quite groggy until hospital day 2 when her mental status had improved. Given intentional overdose patient was evaluated for behavioral health admission, and the patient agreed to go voluntarily. Her labs have been unremarkable and she looks quite well today, she is medically stable for discharge. Her blood pressures were mildly elevated which was likely due to the acute intoxication as well as some mild anxiety present here. She was normotensive and intermittently hypertensive on hospital day 2. Her blood pressure should be evaluated in the clinic setting to determine if chronic outpatient therapy as needed. Exam Vital Signs (past 8 hours): - 11/25/18 12:35 11/25/18 15:14 Temperature 97.5 F L Pulse Rate 79 69 Respiratory Rate 16 18 Blood Pressure 151/79 H Pulse Oximetry 97 99 Oxygen Delivery Method Room Air Oxygen Flow Rate 0 Narrative Exam Narrative: GENERAL APPEARANCE: Well developed, well nourished, mildly anxious appearing and reserved. SKIN: Inspection of the skin reveals no rashes, ulcerations or petechiae. HEENT: The sclerae were anicteric and conjunctivae were pink and moist. Extraocular movements were intact and pupils were equal, round with normal accommodation. External inspection of the ears and nose showed no scars, le sions, or masses. Lips, teeth, and gums showed normal mucosa. The oral mucosa, hard and soft palate, tongue and posterior pharynx were unremarkable. NECK: Supple and symmetric. There was no thyroid enlargement, and no tenderness, or masses were felt. CHEST: Normal AP diameter and normal contour without any kyphoscoliosis. LUNGS: Auscultation of the lungs revealed no wheezes, rhonchi, or rales. CARDIOVASCULAR: There was a regular rate and rhythm without any murmurs, gallops, rubs. Peripheral pulses were 2+ and symmetric. ABDOMEN: Soft and nontender with normal bowel sounds. No ascites was noted. MUSCULOSKELETAL: There was no tenderness or effusions noted. Muscle strength and tone were normal. EXTREMITIES: No cyanosis, clubbing or edema. NEUROLOGIC: Alert and oriented x 3. Normal affect. Strength is +5/5 in the Upper Extremities and Lower Extremities Bilaterally. Sensation to touch was normal. Objective Labs Result Diagrams: 11/25/18 04:44 11/25/18 04:44 Labs: Laboratory Results - last 24 hr 11/25/18 11/25/18 04:44 04:44 WBC 9.3 RBC 3.90 L Hgb 12.1 Hct 34.7 L MCV 89.0 MCH 31.0 MCHC 34.8 RDW 13.5 Plt Count 193 Neut % (Auto) 60.6 Lymph % (Auto) 28.7 Walker % (Auto) 5.9 Eos % (Auto) 3.7 Baso % (Auto) 1.1 Neut # (Auto) 5600 Lymph # (Auto) 2700 Walker # (Auto) 500 Eos # (Auto) 300 Baso # (Auto) 100 Sodium 143 Potassium 3.5 Chloride 117 H Carbon Dioxide 22 BUN 10 Creatinine 0.50 L Estimated GFR > 60.0 BUN/Creatinine Ratio 20.0 Glucose 83 Calcium 8.4 Total Bilirubin 0.6 AST 16 ALT 16 Alkaline Phosphatase 50 Total Protein 5.7 L Albumin 3.1 L Globulin 2.6 Albumin/Globulin Ratio 1.2 Discharge Plan Discharge Plan Patient Disposition: Xfer Psychiatric Hosp Other facility: [facility] Under care of provider: Dr. Koo Discharge comment: Your admitted to the hospital for an overdose of olanzapine. You needed to be intubated for airway protection, you were quickly extubated and medically stable after 2 days in the hospital. You being transferred to [facility] under a voluntary hold upon discharge. Your blood pressure was mildly elevated, this is likely due to your hospitalization. There is no need for medical therapy at this time, you should follow up with a primary care provider to recheck your blood pressure in a more optimal setting. At this time Olanzapine has been held, I believe your psychiatric medication should be restarted with the help of a psychiatrist at [facility]. Discharge Med Rec/Prescriptions Prescriptions: Discontinued olanzapine 2.5 mg Tablet 2.5 mg PO DAILY PRN (Reason: Anxiety) RF: 0 olanzapine 15 mg Tablet 15 mg PO BEDTIME RF: 0 vitamin E 400 unit Capsule 400 unit PO DAILY RF: 0 Discharge Orders: Discharge (Order); Ordered 11/25/18 Ordered By: Andrés Chandler Discharge Health Status Brief summary of current health status: 58 y.o. female with a history of bipolar disorder and PTSD arrived to the ED after daughter contacted police after a suicide attempt. She was at home and decided to take a bottle of olanzapine, which after psych she said was stupid.The patient was intubated in the emergency room for airway protection and admitted to the ICU for monitoring. She was extubated the following day, but she was still quite groggy until hospital day 2 when her mental status had improved. Given intentional overdose patient was evaluated for behavioral health admission, and the patient agreed to go voluntarily. Her labs have been unremarkable and she looks quite well today, she is medically stable for discharge. Her blood pressures were mildly elevated which was likely due to the acute intoxication as well as some mild anxiety present here. She was normotensive and intermittently hypertensive on hospital day 2. Her blood pressure should be evaluated in the clinic setting to determine if chronic outpatient therapy as needed. Precautions: [place] Provider Discharge Instructions Diet: Diet as Tolerated Activity: No restrictions Quality VTE Deep Vein Thrombosis/Pulmonary Embolism Present on Admission: No
--- NOTE | 2018-11-25 17:21 | CM.DANOTE ---
DCP/continued: Reviewed chart. Per Dr. Chandler, patient medically stable for inpatient psychiatric care today. TELECOMMUNICATION OPERATOR met with patient and daughter/Sharon and her SO/Antonio at bedside explained TELECOMMUNICATION OPERATOR role. Patient agreeable for family to stay in the room for portion of assessment. Patient reports that she was attempting to end my life when she overdosed on medication/alcohol on Sunday11-23-18. Patient active with [facility]. Patient denies previous suicide attempts but does report previous inpatient psychiatric hospitalization 3yrs ago at [facility]. Patient and daughter report patient has difficulty with medication regime. Patient seen last week by Dominick CLIFTON/Madeline Sotelo. Placed call to Madeline and discussed the above. Madeline feels that this current suicidal behavior is unusual for patient. She recommends inpatient psychiatric placement for monitoring. After discussion with family at bedside met with patient alone. Patient agreeable to short stay for inpatient monitoring of MH. Patient admits to being fearful of next steps and possibility of repeating SI. Placed call to [facility] which patient requested as first choice, spoke with Sylvia they do have bed. All info faxed to [facility] for review. Received return call that they can accept. Dr. Koo if accepting physician. Patient and family continue to be aware and agreeable to plan. Patient provided with brochure. RN to call report and dye house helper to set up BLS transport. Dominick CLIFTON notified of disposition. P: [place]. PINKY Carrillo
== END 2018-11-25 18:04 | DRG 812 ==
LOC: ED 18:32 → ICU 18:47
PROVIDERS: Nurse Practitioner Family; Admitting Provider Family Medicine; Emergency Provider Emergency Medicine; Visit Provider Family Medicine
DX: T43.592A Poisoning by other antipsychotics and neuroleptics, intentional self-harm, initial encounter (principal); R40.2343 Coma scale, best motor response, flexion withdrawal, at hospital admission; R40.2123 Coma scale, eyes open, to pain, at hospital admission; R40.2213 Coma scale, best verbal response, none, at hospital admission; F31.89 Other bipolar disorder; F20.9 Schizophrenia, unspecified; F43.10 Post-traumatic stress disorder, unspecified; Z59.0 Homelessness; Y92.59 Other trade areas as the place of occurrence of the external cause
CPT/HCPCS: 36415; 36600; 51701; 71045; 80053; 80076; 80305; 80320; 80329; 82805; 83605; 83690; 85025; 87797; 93005; 94002; 94003; 94760; 94770; 94799; 96360; 99283; 99285; 99291; 99292; C9113; G0480; J0330; J1650; J2250; J2704

== ENCOUNTER 2021-03-12 23:00 | Emergency (ER) | payer OTHER, MEDICAID, SELFPAY ==
[2018-11-24 09:45] VITALS: PULSE 79; RESP 18; O2SAT 95
[2018-11-24 17:56] VITALS: BMI 25.6
--- NOTE | 2021-03-12 23:19 | PC.NURSE ---
Began triage of patient when she turned around and walked out of the room. Both me and fellow RN's and law enforcement attempted to verbally convince her to stay but she exited the ER.
== END 2021-03-12 23:21 | disposition left against medical advice (07) ==
PROVIDERS: Emergency Provider Emergency Medicine
DX: Z53.21 Procedure and treatment not carried out due to patient leaving prior to being seen by health care provider (principal)